=== PATIENT | male | born 1940 | race Caucasian/White ===

== ENCOUNTER 2019-09-19 14:53 | Emergency (ER) | payer MEDICARE ==
[~2019-09-19] VITALS: Ht 177.8 cm; Wt 75.9 kg
[2019-09-19 15:14] VITALS: BP 129/78
[2019-09-19] MEDS ORDERED: LIDOcaine 1% W/epiNEPHrine 1:200,000 10ml vial IJ ONE (16:00)
[2019-09-19] MEDS ORDERED: TETanus/Pertussis (Acell)/Diphther VAC/PF (Tdap-Adult) 0.5ml syringe IMVAC ONE (16:00)
== END 2019-09-19 18:39 | disposition home or self-care (01) ==
LOC: ER 14:54
DX: S81.012A Laceration without foreign body, left knee, initial encounter (principal); W18.30XA Fall on same level, unspecified, initial encounter; Y93.89 Activity, other specified; Y92.89 Other specified places as the place of occurrence of the external cause; Y99.8 Other external cause status; Z79.2 Long term (current) use of antibiotics; Z88.8 Allergy status to other drugs, medicaments and biological substances
CPT/HCPCS: 12001; 73590; 90471; 90715; 99283